=== PATIENT | male | born 1950 | race Caucasian/White ===

== ENCOUNTER → 2016-08-12 | Outpatient (CLI) | payer OTHER ==
[~2016-08-12] MED LIST: IOPAMIDOL (ISOVUE-300) 100 ML BTL ONE
[2016-08-12 09:43] LABS: GLOMERULAR FILTRATION RATE > 60
== END ==
LOC: FIMAGING 08:37
PROVIDERS: ATTEND Urology
DX: C61 Malignant neoplasm of prostate (principal); E27.9 Disorder of adrenal gland, unspecified; K80.20 Calculus of gallbladder without cholecystitis without obstruction
CPT/HCPCS: Q9967

== ENCOUNTER → 2016-08-22 | Outpatient (CLI) | payer OTHER | LOC: FIMAGING 10:30 | PROVIDERS: ATTEND Urology | DX: Z03.89 Encounter for observation for other suspected diseases and conditions ruled out (principal); R97.20 Elevated prostate specific antigen [PSA]; C61 Malignant neoplasm of prostate | CPT/HCPCS: A9503 ==